=== PATIENT | female | born 1950 | race Caucasian/White ===

== ENCOUNTER 2019-09-04 13:34 | Observation (INO) | payer MEDICARE ==
[2019-09-04] MEDS ORDERED: Metoclopramide 10 MG/2 ML SDV IVPUSH ONE (14:08)
[2019-09-04] MEDS ORDERED: Sodium Chloride 0.9% 10 ML Syringe FLUSH PRN (14:08)
[2019-09-04] MEDS ORDERED: HYDROmorphone 1 MG/ML Syringe IVPUSH ONE ×2 (14:08→15:35)
--- NOTE | 2019-09-04 14:19 | EDM.PDOC ---
ED HPI GENERAL MEDICAL PROBLEM - General Chief Complaint: Lower Extremity Injury/Pain Stated Complaint: LARGE HEMATOMA ON LEG Time Seen by Provider: 09/04/19 14:08 Source of Information: Reports: Patient History Limitations: Reports: No Limitations - History of Present Illness INITIAL COMMENTS - FREE TEXT/NARRATIVE: 69-year-old female presents to the ED from local correction. She presents with a very large hematoma that has developed since about 10:00 this morning on her left lower extremity. She states her leg came in contact with the edge of a old left and started initial contusion. She then banged her right olvera on her care providers knee. Thus significant blunt trauma to the area occurred. Patient is on Eliquis 5mg daily due to atrial fibrillation. Patient started with a boost to the area which is gradually increased in size to the point that she can't stand the pain any longer. Large hematoma has developed on the anterior medial aspect of her right leg which is measures 16 cm in diameter and is exquisitely tender to palpation. Onset: Today Onset Date: 09/04/19 Onset Time: 10:00 Duration: Hour(s): Location: Reports: Lower Extremity, Right (TAHIR, gradually enlarging over the) Quality: Reports: Ache ( midportion and medial portion of her right lower leg.) , Throbbing Severity: Severe (10 out of 10) Improves with: Reports: None Worsens with: Reports: Other Context: Reports: Trauma (Blunt trauma to the right anterior medial leg this morning on any other persons knee.). Denies: Activity (Touch or movement of her leg), Exercise, Lifting, Sick Contact Associated Symptoms: Reports: No Other Symptoms Treatments RENAL DIALYSIS RN: Reports: Other (see below) (Nothing has helped the pain so far.) Right Lower Leg Pain Score (Numeric/FACES): 10 - Related Data Allergies Allergy/AdvReac Type Severity Reaction Status Date / Time benzoin Allergy Rash Verified 09/04/19 16:15 diclofenac [From [employer]] Allergy Pain Verified 09/04/19 16:15 fentanyl Allergy Confusion Verified 09/04/19 15:36 floxacillin Allergy Pain Verified 09/04/19 16:15 misoprostol [From [employer]] Allergy Pain Verified 09/04/19 16:15 morphine Allergy Respiratory Verified 09/04/19 15:36 Distress Home Meds: Home Meds Apixaban [Eliquis] 5 mg PO DAILY 09/04/19 [History] Calcium Acetate 667 mg PO TID 09/04/19 [History] Gabapentin [Neurontin] 100 mg PO TID 09/04/19 [History] Insulin Glarg,Human.Rec.Analog [Lantus] 15 units SQ BEDTIME 09/04/19 [History] Levothyroxine Sodium [Synthroid] 150 mcg PO DAILY 09/04/19 [History] Melatonin 10 mg PO BEDTIME 09/04/19 [History] Midodrine 10 mg PO TID 09/04/19 [History] Pantoprazole Sodium 40 mg PO BIDAC 09/04/19 [History] Sertraline [Zoloft] 100 mg PO BEDTIME 09/04/19 [History] Vitamin B Complex [B Complex] 1 tab PO DAILY 09/04/19 [History] traZODone HCl [Trazodone HCl] 150 mg PO BEDTIME 09/04/19 [History] Past Medical History Cardiovascular History: Reports: Afib, Heart Failure, High Cholesterol, Hypertension, Pacemaker, SOB on Exertion Respiratory History: Reports: COPD Genitourinary History: Reports: Urinary Incontinence, Other (See Below) (Stress and urge components. Urinary frequency) Musculoskeletal History: Reports: Osteoarthritis, Other (See Below) (No longer walks due to severe pain in both lower extremities. She uses a Sherita lift to get in and out of the bathtub and bed.) Psychiatric History: Reports: Depression, Other (See Below) (Chronic insomnia) Endocrine/Metabolic History: Reports: Diabetes, Type II (Using insulin for control of her diabetes.), Obesity/BMI 30+, Osteopenia, Osteoporosis, Vitamin D Deficiency Social & Family History - Living Situation & Occupation Living situation: Reports: Extended Care Facility Occupation: Retired Review of Systems - Review of Systems Review Of Systems: See Below Constitutional: Reports: Weakness Eyes: Reports: No Symptoms Ears: Reports: No Symptoms Nose: Reports: No Symptoms Mouth/Throat: Reports: No Symptoms Respiratory: Reports: Shortness of Breath. Denies: Wheezing, Pleuritic Chest Pain Cardiovascular: Reports: Edema, Irregular Heart Rate (Chronic atrial fibrillation), Other (Known heart failure) GI/Abdominal: Reports: No Symptoms Genitourinary: Reports: Incontinence (Urgent stress components.), Other Musculoskeletal: Reports: Joint Pain (Urinary frequency) Skin: Reports: Bruising ( knees hips low back neck and shoulders at times. is extremely easily lately and has skin tears to both upper extremities. ) Neurological: Reports: No Symptoms Psychiatric: Reports: No Symptoms ED EXAM, GENERAL - Physical Exam Exam: See Below Exam Limited By: No Limitations General Appearance: Alert, Moderate Distress (She is in a great deal of pain from the hematoma expanding on her right lower extremity) Eye Exam: Bilateral Eye: Normal Inspection, PERRL Throat/Mouth: Normal Inspection, Normal Lips, Normal Oropharynx Head: Atraumatic, Normocephalic Neck: Limited Range of Motion. No: Lymphadenopathy (L), Lymphadenopathy (R) Respiratory/Chest: Chest Non-Tender, Decreased Breath Sounds (Decreased air into the posterior 30% lung redd bilaterally.), Wheezing (Expiratory wheeze.) , Other (Placido make her left upper anterior chest.). No: Lungs Clear, Normal Breath Sounds Cardiovascular: No Gallop, No Murmur, No Rub, Irregularly Irregular ( Intermittent or paroxysmal atrial fibrillation.). No: Normal Peripheral Pulses , Regular Rate, Rhythm Peripheral Pulses: 1+: Posterior Tibial (L), Dorsalis Pedis (R) GI/Abdominal: Soft, Non-Tender, No Organomegaly, No Abnormal Bruit, No Mass, Pelvis Stable (Palpation), Other Back Exam: No: CVA Tenderness (L), CVA Tenderness (R) Extremities: Joint Swelling (Knees show evidence of osteophytic change.), Other (Patient has mild venous stasis dermatitis bilaterally both lower extremities. She has a developing large 16 cm hematoma over the right lower anterior medial leg. It is exquisitely tender to touch.). No: Normal Range of Motion Neurological: Alert, Oriented, CN II-XII Intact, Normal Cognition Psychiatric: Anxious Skin Exam: Warm, Ecchymosis (Enlarging hematoma right anterior medial leg now measuring 16 cm since blunt trauma 10:00 this morning. Patient is chronically anticoagulated with Eliquis I believe 5 mg twice a day.) Course - Vital Signs Last Recorded V/S: Last Vital Signs Temp 36.7 C 09/04/19 16:55 Pulse 82 09/04/19 19:31 Resp 16 09/04/19 16:55 BP 95/66 09/04/19 19:31 Pulse Ox 90 L 09/04/19 19:31 - Orders/Labs/Meds Orders: Active Orders 24 hr Category Date Time Status Admission Status [Patient Status] [ADT] Routine ADT 09/04/19 15:32 Active Peripheral IV Care [RC] . DIRECTED Care 09/04/19 14:08 Active Sodium Chloride 0.9% [Saline Flush] Med 09/04/19 14:08 Active 10 ml FLUSH ASDIRECTED PRN Peripheral IV Insertion Adult [OM.PC] Stat Oth 09/04/19 14:08 Ordered Schedule Procedure [COMM] Stat Oth 09/04/19 15:24 Ordered Schedule Procedure [COMM] Urgent Oth 09/04/19 15:18 Ordered Medication Orders Gabapentin (Neurontin) 100 mg PO TID LOAN Hydromorphone HCl (Dilaudid) 0.5 mg IVPUSH Q2HR PRN PRN Reason: Pain Sodium Chloride (Normal Saline) 1,000 mls @ 80 mls/hr IV ASDIRECTED LOAN Potassium Chloride/Sodium Chloride (Normal Saline With 20 Meq Kcl) 1,000 mls @ 75 mls/hr IV ASDIRECTED LOAN Insulin Glargine (Lantus) 15 unit SUBCUT BEDTIME LOAN Non-Formulary Medication (Calcium Acetate [Calcium Acetate]) 667 mg PO TID LOAN Non-Formulary Medication (Melatonin [Melatonin]) 10 mg PO BEDTIME LOAN Non-Formulary Medication (Sertraline) 100 mg PO BEDTIME LOAN Non-Formulary Medication (Trazodone Hcl [Trazodone Hcl]) 150 mg PO BEDTIME LOAN Non-Formulary Medication (Vitamin B Complex) 1 tab PO DAILY LOAN Nystatin (Nystop) 0 gm TOP BID LOAN Sodium Chloride (Saline Flush) 10 ml FLUSH ASDIRECTED PRN PRN Reason: Keep Vein Open Last Admin: 09/04/19 14:18 Dose: 10 ml Labs: Laboratory Tests 09/04/19 09/04/19 09/04/19 Range/Units 14:16 14:16 14:16 WBC 7.38 (3.98-10.04) K/mm3 RBC 2.87 L (3.98-5.22) M/mm3 Hgb 9.0 L (11.2-15.7) gm/dl Hct 30.5 L (34.1-44.9) % MCV 106.3 H (79.4-94.8) fl MCH 31.4 (25.6-32.2) pg MCHC 29.5 L (32.2-35.5) g/dl RDW Std Deviation 60.1 H (36.4-46.3) fL Plt Count 190 (182-369) K/mm3 MPV 10.9 (9.4-12.3) fl Neut % (Auto) 81.8 H (34.0-71.1) % Lymph % (Auto) 11.2 L (19.3-51.7) % Williams % (Auto) 5.1 (4.7-12.5) % Eos % (Auto) 1.5 (0.7-5.8) Baso % (Auto) 0.1 (0.1-1.2) % Neut # (Auto) 6.03 (1.56-6.13) K/mm3 Lymph # (Auto) 0.83 L (1.18-3.74) K/mm3 Williams # (Auto) 0.38 H (0.24-0.36) K/mm3 Eos # (Auto) 0.11 (0.04-0.36) K/mm3 Baso # (Auto) 0.01 (0.01-0.08) K/mm3 Manual Slide Review Abnormal smear PT 10.7 (9.7-12.0) SECONDS INR 0.98 APTT 30 (22-31) SECONDS Sodium 136 (136-145) mEq/L Potassium 3.5 (3.5-5.1) mEq/L Chloride 99 (98-107) mEq/L Carbon Dioxide 31 (21-32) mEq/L Anion Gap 9.5 (5-15) BUN 34 H (7-18) mg/dL Creatinine 4.4 H (0.55-1.02) mg/dL Est Cr Clr Drug Dosing 9.11 mL/min Estimated GFR (MDRD) 10 (>60) mL/min BUN/Creatinine Ratio 7.7 L (14-18) Glucose 317 H (80-115) mg/dL Calcium 8.1 L (8.5-10.1) mg/dL Magnesium 1.5 L (1.8-2.4) mg/dl Total Bilirubin 0.4 (0.2-1.0) mg/dL AST 15 (15-37) U/L ALT 21 (14-59) U/L Alkaline Phosphatase 127 H (46-116) U/L NT-Pro-B Natriuret Pep (0-125) pg/mL Total Protein 6.6 (6.4-8.2) g/dl Albumin 2.9 L (3.4-5.0) g/dl Globulin 3.7 gm/dL Albumin/Globulin Ratio 0.8 L (1-2) 09/04/19 Range/Units 14:16 WBC (3.98-10.04) K/mm3 RBC (3.98-5.22) M/mm3 Hgb (11.2-15.7) gm/dl Hct (34.1-44.9) % MCV (79.4-94.8) fl MCH (25.6-32.2) pg MCHC (32.2-35.5) g/dl RDW Std Deviation (36.4-46.3) fL Plt Count (182-369) K/mm3 MPV (9.4-12.3) fl Neut % (Auto) (34.0-71.1) % Lymph % (Auto) (19.3-51.7) % Williams % (Auto) (4.7-12.5) % Eos % (Auto) (0.7-5.8) Baso % (Auto) (0.1-1.2) % Neut # (Auto) (1.56-6.13) K/mm3 Lymph # (Auto) (1.18-3.74) K/mm3 Williams # (Auto) (0.24-0.36) K/mm3 Eos # (Auto) (0.04-0.36) K/mm3 Baso # (Auto) (0.01-0.08) K/mm3 Manual Slide Review PT (9.7-12.0) SECONDS INR APTT (22-31) SECONDS Sodium (136-145) mEq/L Potassium (3.5-5.1) mEq/L Chloride (98-107) mEq/L Carbon Dioxide (21-32) mEq/L Anion Gap (5-15) BUN (7-18) mg/dL Creatinine (0.55-1.02) mg/dL Est Cr Clr Drug Dosing mL/min Estimated GFR (MDRD) (>60) mL/min BUN/Creatinine Ratio (14-18) Glucose (80-115) mg/dL Calcium (8.5-10.1) mg/dL Magnesium (1.8-2.4) mg/dl Total Bilirubin (0.2-1.0) mg/dL AST (15-37) U/L ALT (14-59) U/L Alkaline Phosphatase (46-116) U/L NT-Pro-B Natriuret Pep > 26562 H (0-125) pg/mL Total Protein (6.4-8.2) g/dl Albumin (3.4-5.0) g/dl Globulin gm/dL Albumin/Globulin Ratio (1-2) Meds: Medications Generic Name Dose Route Start Last Admin Trade Name Freq PRN Reason Stop Dose Admin Gabapentin 100 mg 09/04/19 21:00 Neurontin PO TID LOAN Hydromorphone HCl 0.5 mg 09/04/19 19:05 Dilaudid IVPUSH Q2HR PRN Pain Sodium Chloride 1,000 mls @ 80 mls/hr 09/04/19 19:00 Normal Saline IV ASDIRECTED LOAN Potassium Chloride/Sodium Chloride 1,000 mls @ 75 mls/hr 09/04/19 20:03 Normal Saline With 20 Meq Kcl IV ASDIRECTED LOAN Insulin Glargine 15 unit 09/04/19 21:00 Lantus SUBCUT BEDTIME LOAN Non-Formulary Medication 667 mg 09/04/19 21:00 Calcium Acetate [Calcium Acetate] PO TID LOAN Non-Formulary Medication 10 mg 09/04/19 21:00 Melatonin [Melatonin] PO BEDTIME LOAN Non-Formulary Medication 100 mg 09/04/19 21:00 Sertraline PO BEDTIME LOAN Non-Formulary Medication 150 mg 09/04/19 21:00 Trazodone Hcl [Trazodone Hcl] PO BEDTIME LOAN Non-Formulary Medication 1 tab 09/05/19 09:00 Vitamin B Complex PO DAILY LOAN Nystatin 0 gm 09/04/19 21:00 Nystop TOP BID LOAN Sodium Chloride 10 ml 09/04/19 14:08 09/04/19 14:18 Saline Flush FLUSH 10 ml ASDIRECTED PRN Administration Keep Vein Open Discontinued Medications Generic Name Dose Route Start Last Admin Trade Name Freq PRN Reason Stop Dose Admin Hydromorphone HCl 1 mg 09/04/19 14:08 09/04/19 14:18 Dilaudid IVPUSH 09/04/19 14:09 1 mg ONETIME ONE Administration Hydromorphone HCl 1 mg 09/04/19 15:35 09/04/19 15:44 Dilaudid IVPUSH 09/04/19 15:36 1 mg ONETIME ONE Administration Hydromorphone HCl Confirm 09/04/19 15:54 Dilaudid Administered 09/04/19 15:55 Dose 0.5 mg .ROUTE .STK-MED ONE Lidocaine HCl Confirm 09/04/19 15:54 Xylocaine-Mpf 1% Administered 09/04/19 15:55 Dose 4 mls @ as directed .ROUTE .STK-MED ONE Ketamine HCl Confirm 09/04/19 15:55 Ketalar Administered 09/04/19 15:56 Dose 500 mg .ROUTE .STK-MED ONE Lidocaine HCl Confirm 09/04/19 15:42 Xylocaine-Mpf 1% Administered 09/04/19 15:43 Dose 30 ml .ROUTE .STK-MED ONE Metoclopramide HCl 7.5 mg 09/04/19 14:08 09/04/19 14:17 Reglan IVPUSH 09/04/19 14:09 7.5 mg ONETIME ONE Administration Propofol Confirm 09/04/19 15:54 Diprivan 20 Ml Administered 09/04/19 15:55 Dose 200 mg .ROUTE .STK-MED ONE Propofol Confirm 09/04/19 15:55 Diprivan 20 Ml Administered 09/04/19 15:56 Dose 200 mg .ROUTE .STK-MED ONE - Radiology Interpretation Free Text/Narrative:: 69-year-old female from local correction presents to the ED after blunt trauma to the right anterior medial right leg occurred at about 10:00 this morning. She has developed a expanding large hematoma over the right anterior medial leg measuring 16 cm at present. She is in severe exquisite pain from tissue expansion. This is going to need drainage and then aggressive compression to control the expanding hematoma. I will ask the surgeon to see her in consultation. In the meantime she will receive Dilaudid 1 mg IV with Reglan 7.5 mg IV for pain and nausea relief. Routine labs will be collected including coags. - Re-Assessments/Exams Free Text/Narrative Re-Assessment/Exam: 09/04/19 15:15 Labs reveal a normal white count at 7.38. The auto differential however shows 82% neutrophils. This micro-slide did not reveal any band cells. Abdomen is low at 9.0 with hematocrit of 30.5. MCV is elevated 106.3. Platelet count 190,000. PT is 10.7 with an INR of 0.98. PTT is 30. Sodium 136 with a potassium low-normal at 3.5. Chloride was 99 with a bicarbonate 31. Anion gap is 9.5. BUN is 34. Creatinine is elevated at 4.4. Therefore elevated MCV is secondary to renal insufficiency. Estimated GFR is 10 which is stage V chronic kidney disease. Glucose elevated at 317 and she is a type II diabetic and using insulin for control. Calcium was 8.1 magnesium is 1.5 low. Liver function is normal BNP is greater than 35,000. Total protein is 6.6 with an albumin fraction of 2.9. Globulin is 3.7. Dr. Cueva--surgeon front desk coordinator has seen the patient in consultation and is willing to take her to the OR to incise and drain the very large hematoma right anterior leg. It is quite obvious that this may continue to bleed and he may have to try and obtain vascular control by tying off the saphenous veins. Anesthesia has deferred the procedure so after 1800 hrs. to allow 6 hours of nothing by mouth before they willing to take her to the OR. 09/04/19 20:18 the labs above suggest that she is extremely high risk for anesthesia and does need adjustment of medications. Departure - Departure Time of Disposition: 16:35 Disposition: Admitted As Inpatient 67 Condition: Serious Clinical Impression: Chronic renal insufficiency, stage V Traumatic hematoma of right lower leg Qualifiers: Encounter type: initial encounter Qualified Code(s): S80.11XA - Contusion of right lower leg, initial encounter Congestive heart failure Qualifiers: Heart failure type: unspecified Heart failure chronicity: chronic Qualified Code(s): I50.9 - Heart failure, unspecified Anemia Qualifiers: Anemia type: due to chronic kidney disease Chronic kidney disease stage: stage 5, not on chronic dialysis Qualified Code(s): N18.5 - Chronic kidney disease, stage 5; D63.1 - Anemia in chronic kidney disease - Discharge Information *PRESCRIPTION DRUG MONITORING PROGRAM REVIEWED*: Not Applicable *COPY OF PRESCRIPTION DRUG MONITORING REPORT IN PATIENT [place]: Not Applicable - My Orders Last 24 Hours: My Active Orders 09/04/19 14:08 Peripheral IV Care [RC] . DIRECTED Sodium Chloride 0.9% [Saline Flush] 10 ml FLUSH ASDIRECTED PRN Peripheral IV Insertion Adult [OM.PC] Stat - Assessment/Plan Last 24 Hours: My Active Orders 09/04/19 14:08 Peripheral IV Care [RC] . DIRECTED Sodium Chloride 0.9% [Saline Flush] 10 ml FLUSH ASDIRECTED PRN Peripheral IV Insertion Adult [OM.PC] Stat
--- NOTE | 2019-09-04 15:36 | PCM.PREANE ---
Preanesthetic Assessment - Anesthesia/Transfusion/Family Hx Anesthesia History: Prior Anesthesia Without Reaction Type of Anesthesia Reaction: Allergy (morphine causes KEO, fentanyl "makes her crazy") Family History of Anesthesia Reaction: No Transfusion History: Prior Transfusion Without Reaction - Review of Systems Pulmonary: Shortness of Breath, Other ( COPD - uses 3L NCO2) Cardiovascular: Other (paced at 80 bpm since 2004 - ablated a number of times and has underlying SVT) - Physical Assessment NPO Status Date: 09/04/19 (1 sandwich, potato chips, Dr. Moss) NPO Status Time: 12:00 Vital Signs: Last Vital Signs Temp 36.5 C 09/04/19 13:46 Pulse Resp 18 09/04/19 13:46 BP Pulse Ox 96 09/04/19 13:46 Height: 5 ft 2 in Weight: 47.174 kg ASA Class: 4E Mental Status: Alert & Oriented x3 Airway Class: Mallampati = 2 Dentition: Reports: Dentures Thyro-Mental Finger Breadths: 3 Mouth Opening Finger Breadths: 3 ROM/Head Extension: Full Lungs: Clear to Auscultation, Normal Respiratory Effort Cardiovascular: Regular Rate (paced), Regular Rhythm - Lab Values: Laboratory Last Values WBC 7.38 K/mm3 (3.98-10.04) 09/04/19 14:16 RBC 2.87 M/mm3 (3.98-5.22) L 09/04/19 14:16 Hgb 9.0 gm/dl (11.2-15.7) L 09/04/19 14:16 Hct 30.5 % (34.1-44.9) L 09/04/19 14:16 MCV 106.3 fl (79.4-94.8) H 09/04/19 14:16 MCH 31.4 pg (25.6-32.2) 09/04/19 14:16 MCHC 29.5 g/dl (32.2-35.5) L 09/04/19 14:16 RDW Std Deviation 60.1 fL (36.4-46.3) H 09/04/19 14:16 Plt Count 190 K/mm3 (182-369) 09/04/19 14:16 MPV 10.9 fl (9.4-12.3) 09/04/19 14:16 Neut % (Auto) 81.8 % (34.0-71.1) H 09/04/19 14:16 Lymph % (Auto) 11.2 % (19.3-51.7) L 09/04/19 14:16 Sullivan % (Auto) 5.1 % (4.7-12.5) 09/04/19 14:16 Eos % (Auto) 1.5 (0.7-5.8) 09/04/19 14:16 Baso % (Auto) 0.1 % (0.1-1.2) 09/04/19 14:16 Neut # (Auto) 6.03 K/mm3 (1.56-6.13) 09/04/19 14:16 Lymph # (Auto) 0.83 K/mm3 (1.18-3.74) L 09/04/19 14:16 Sullivan # (Auto) 0.38 K/mm3 (0.24-0.36) H 09/04/19 14:16 Eos # (Auto) 0.11 K/mm3 (0.04-0.36) 09/04/19 14:16 Baso # (Auto) 0.01 K/mm3 (0.01-0.08) 09/04/19 14:16 PT 10.7 SECONDS (9.7-12.0) 09/04/19 14:16 INR 0.98 09/04/19 14:16 APTT 30 SECONDS (22-31) 09/04/19 14:16 Sodium 136 mEq/L (136-145) 09/04/19 14:16 Potassium 3.5 mEq/L (3.5-5.1) 09/04/19 14:16 Chloride 99 mEq/L (98-107) 09/04/19 14:16 Carbon Dioxide 31 mEq/L (21-32) 09/04/19 14:16 Anion Gap 9.5 (5-15) 09/04/19 14:16 BUN 34 mg/dL (7-18) H 09/04/19 14:16 Creatinine 4.4 mg/dL (0.55-1.02) H 09/04/19 14:16 Est Cr Clr Drug Dosing 9.11 mL/min 09/04/19 14:16 Estimated GFR (MDRD) 10 mL/min (>60) 09/04/19 14:16 BUN/Creatinine Ratio 7.7 (14-18) L 09/04/19 14:16 Glucose 317 mg/dL (80-115) H 09/04/19 14:16 Calcium 8.1 mg/dL (8.5-10.1) L 09/04/19 14:16 Magnesium 1.5 mg/dl (1.8-2.4) L 09/04/19 14:16 Total Bilirubin 0.4 mg/dL (0.2-1.0) 09/04/19 14:16 AST 15 U/L (15-37) 09/04/19 14:16 ALT 21 U/L (14-59) 09/04/19 14:16 Alkaline Phosphatase 127 U/L (46-116) H 09/04/19 14:16 NT-Pro-B Natriuret Pep > 10587 pg/mL (0-125) H 09/04/19 14:16 Total Protein 6.6 g/dl (6.4-8.2) 09/04/19 14:16 Albumin 2.9 g/dl (3.4-5.0) L 09/04/19 14:16 Globulin 3.7 gm/dL 09/04/19 14:16 Albumin/Globulin Ratio 0.8 (1-2) L 09/04/19 14:16 - Allergies Allergies/Adverse Reactions: Allergies Allergy/AdvReac Type Severity Reaction Status Date / Time benzoin Allergy Cannot Verified 09/04/19 15:36 Remember fentanyl Allergy Confusion Verified 09/04/19 15:36 morphine Allergy Respiratory Verified 09/04/19 15:36 Distress - Anesthesia Plan Pre-Op Medication Ordered: None - Acknowledgements Anesthesia Type Planned: MAC Pt an Appropriate Candidate for the Planned Anesthesia: Yes Alternatives and Risks of Anesthesia Discussed w Pt/Guardian: Yes Pt/Guardian Understands and Agrees with Anesthesia Plan: Yes Additional Comments: Need to wait until NPO status is achieved PreAnesthesia Questionnaire HEENT History: Reports: Impaired Vision Cardiovascular History: Reports: Afib, Heart Failure, High Cholesterol, Hypertension, Pacemaker, SOB on Exertion Other Cardiovascular History: Previous albasions done Respiratory History: Reports: COPD Genitourinary History: Reports: Dialysis Musculoskeletal History: Reports: Osteoarthritis, Other (See Below) (No longer walks due to severe pain in both lower extremities. She uses a Sherita lift to get in and out of the bathtub and bed.) Other Musculoskeletal History: past greenstick break to femur, fractured R arm, tib fib fracture, Psychiatric History: Reports: Anxiety, Depression Endocrine/Metabolic History: Reports: Diabetes, Type I, Diabetes, Type II - Past Surgical History HEENT Surgical History: Reports: Cataract Surgery, Tonsillectomy Other HEENT Surgeries/Procedures: dentures full top & bottom GI Surgical History: Reports: Colostomy - SUBSTANCE USE Smoking Status *Q: Former Smoker - CURRENT (IN HOUSE) MEDS Current Meds: Current Medications Sodium Chloride (Saline Flush) 10 ml FLUSH ASDIRECTED PRN PRN Reason: Keep Vein Open Last Admin: 09/04/19 14:18 Dose: 10 ml Discontinued Medications Hydromorphone HCl (Dilaudid) 1 mg IVPUSH ONETIME ONE Stop: 09/04/19 14:09 Last Admin: 09/04/19 14:18 Dose: 1 mg Metoclopramide HCl (Reglan) 7.5 mg IVPUSH ONETIME ONE Stop: 09/04/19 14:09 Last Admin: 09/04/19 14:17 Dose: 7.5 mg
[2019-09-04] MEDS ORDERED: Lidocaine 1% 30 ML SDV ONE (15:42)
[2019-09-04] MEDS ORDERED: Propofol 200 MG/20 ML SDV ONE ×2 (15:54→15:55)
[2019-09-04] MEDS ORDERED: HYDROmorphone 0.5 MG/0.5 ML Syringe ONE (15:54)
[2019-09-04] MEDS ORDERED: Lidocaine 1% 4 ML ONE (15:54)
[2019-09-04] MEDS ORDERED: Ketamine 500 mg/10 ML MDV ONE (15:55)
--- NOTE | 2019-09-04 18:31 | PCM.OPNOTE ---
- General Post-Op/Procedure Note Date of Surgery/Procedure: 09/04/19 Operative Procedure(s): drainage of hematoma acute expanding rt calf Pre Op Diagnosis: acute hematoma rt calf Post-Op Diagnosis: Same Anesthesia Technique: MAC Primary Surgeon: Ronnie Cueva EBL in mLs: 260 Complications: None Condition: Good
--- NOTE | 2019-09-04 18:52 | PCM.POSTAN ---
POST ANESTHESIA ASSESSMENT - MENTAL STATUS Mental Status: Alert, Oriented - VITAL SIGNS Vital Signs: Last Vital Signs Temp 36.5 C 09/04/19 13:46 Pulse Resp 18 09/04/19 13:46 BP Pulse Ox 96 09/04/19 13:46 - RESPIRATORY Respiratory Status: Respiratory Rate WNL, Airway Patent, O2 Saturation Stable, Supplemental Oxygen (NC O2 baseline use 24/7) - CARDIOVASCULAR CV Status: Pulse Rate WNL, Blood Pressure Stable - GASTROINTESTINAL GI Status: No Symptoms - PAIN Pain Score: 0 - POST OP HYDRATION Hydration Status: Adequate & Stable - OBSERVATIONS Free Text/Narrative:: Routine MAC sedation case. No complications. See anesthesia record for recovery vital signs.
[2019-09-04] MEDS ORDERED: Sodium Chloride 0.9% 1,000 ML IV SCH (19:00)
[2019-09-04] MEDS ORDERED: NS + KCl 20mEq/L 1,000 ML IV SCH (20:03)
[2019-09-04] MEDS ORDERED: Non-Formulary Medication 1 Each (Melatonin [Melatonin] 10 MG) PO SCH (21:00)
[2019-09-04] MEDS ORDERED: Insulin Glarg,Human.Rec.Analog 100 UNIT/ML ML SUBCUT SCH (21:00)
[2019-09-04] MEDS: Sertraline 50 MG Tab PO SCH (21:54)
[2019-09-04] MEDS: Gabapentin 100 MG Cap PO SCH (21:54)
[2019-09-04] MEDS: Calcium Acetate 667 MG Cap PO SCH (21:54)
[2019-09-04] MEDS: traZODone 50 MG Tab PO SCH (21:54)
[2019-09-04] MEDS: Nystatin Topical Powder 15 GM Bottle TOP SCH (21:54)
[2019-09-04] MEDS: HYDROmorphone 0.5 MG/0.5 ML Syringe IVPUSH PRN (21:55)
[2019-09-04] MEDS: Melatonin 3 MG Tab PO SCH (23:01)
[2019-09-05] MEDS: HYDROmorphone 0.5 MG/0.5 ML Syringe IVPUSH PRN ×4 (04:02→13:43)
[2019-09-05] MEDS: Calcium Acetate 667 MG Cap PO SCH ×3 (06:30→17:24)
[2019-09-05] MEDS: Vitamin B Complex With Vitamin C Cap PO SCH (08:55)
[2019-09-05] MEDS: Gabapentin 100 MG Cap PO SCH ×3 (08:55→20:36)
[2019-09-05] MEDS: Nystatin Topical Powder 15 GM Bottle TOP SCH ×2 (10:06→20:37)
[2019-09-05] MEDS ORDERED: Acetaminophen/HYDROcodone 325-5 MG Tab PO PRN ×2 (13:29→13:59)
[2019-09-05] MEDS ORDERED: Insulin Lispro 100 Units/ML 3 ML Vial SUBCUT SCH (17:00)
[2019-09-05] MEDS: Insulin Lispro 100 Units/ML 3 ML Vial SUBCUT SCH ×3 (17:48→21:13)
--- NOTE | 2019-09-05 20:11 | PCM48HPAN ---
Post Anesthesia Note - EVALUATION WITHIN 48HRS OF ANESTHETIC Vital Signs in Normal Range: Yes Patient Participated in Evaluation: No (patient sleeping) Respiratory Function Stable: Yes (patient at baseline FiO2 requirements) Airway Patent: Yes Cardiovascular Function Stable: Yes Hydration Status Stable: Yes Pain Control Satisfactory: Yes Nausea and Vomiting Control Satisfactory: Yes Mental Status Recovered: Yes Vital Signs: Last Vital Signs Temp 36.5 C 09/05/19 16:10 Pulse 83 09/05/19 16:10 Resp 16 09/05/19 16:10 BP 103/84 09/05/19 16:10 Pulse Ox 95 09/05/19 16:10 - COMMENTS/OBSERVATIONS Free Text/Narrative:: Patient will need to get back on her dialysis schedule and need aggressive wound therapy; otherwise, her anesthetic was uneventful and she is at her baseline
[2019-09-05] MEDS: Melatonin 3 MG Tab PO SCH (20:36)
[2019-09-05] MEDS: traZODone 50 MG Tab PO SCH (20:37)
[2019-09-05] MEDS: Sertraline 50 MG Tab PO SCH (20:38)
[2019-09-05] MEDS ORDERED: Insulin Glarg,Human.Rec.Analog 100 UNIT/ML ML SUBCUT SCH (21:00)
[2019-09-06] MEDS: Insulin Lispro 100 Units/ML 3 ML Vial SUBCUT SCH ×2 (07:33→11:34)
[2019-09-06] MEDS: Gabapentin 100 MG Cap PO SCH (08:19)
[2019-09-06] MEDS: Calcium Acetate 667 MG Cap PO SCH ×2 (08:19→11:33)
[2019-09-06] MEDS: Vitamin B Complex With Vitamin C Cap PO SCH (08:19)
[2019-09-06] MEDS: Nystatin Topical Powder 15 GM Bottle TOP SCH (08:23)
--- NOTE | 2019-09-06 09:18 | PCM.CONS ---
H&P History of Present Illness - General Date of Service: 09/06/19 Admit Problem/Dx: Admission Diagnosis/Problem Admission Diagnosis/Problem Hematoma - History of Present Illness Initial Comments - Free Text/Narative: 69-year-old female with extensive past medical history who presents to the ED from local [facility] care facility for severe right leg pain. She presents with a very large hematoma that has developed since about 10:00 this morning on her right lower extremity. As per patient she is bedbound and banged her leg accidentally on bed after which she started noticing worsening edema as well as pain. This continued to get worse for which she decided to come to the ED for further evaluation. Of note patient is on Eliquis for atrial fibrillation, last dose Friday. Right Lower Leg Pain Score (Numeric/FACES): 8 - Related Data Allergies/Adverse Reactions: Allergies Allergy/AdvReac Type Severity Reaction Status Date / Time benzoin Allergy Rash Verified 09/04/19 21:06 morphine Allergy Respiratory Verified 09/04/19 21:06 Distress diclofenac [From [employer]] AdvReac Pain Verified 09/06/19 10:52 fentanyl AdvReac Confusion Verified 09/06/19 10:52 floxacillin AdvReac Pain Verified 09/06/19 10:52 misoprostol [From [employer]] AdvReac Pain Verified 09/06/19 10:52 Home Medications: Home Meds Apixaban [Eliquis] 5 mg PO DAILY 09/04/19 [History] Calcium Acetate 667 mg PO TID 09/04/19 [History] Gabapentin [Neurontin] 100 mg PO TID 09/04/19 [History] Insulin Glarg,Human.Rec.Analog [Lantus] 15 units SQ BEDTIME 09/04/19 [History] Levothyroxine Sodium [Synthroid] 150 mcg PO DAILY 09/04/19 [History] Melatonin 10 mg PO BEDTIME 09/04/19 [History] Midodrine 10 mg PO TID 09/04/19 [History] Pantoprazole Sodium 40 mg PO BIDAC 09/04/19 [History] Sertraline [Zoloft] 100 mg PO BEDTIME 09/04/19 [History] Vitamin B Complex [B Complex] 1 tab PO DAILY 09/04/19 [History] traZODone HCl [Trazodone HCl] 150 mg PO BEDTIME 09/04/19 [History] Past Medical History HEENT History: Reports: Impaired Vision Cardiovascular History: Reports: Afib, Heart Failure, High Cholesterol, Hypertension, Pacemaker, SOB on Exertion Other Cardiovascular History: Previous albasions done Respiratory History: Reports: COPD Genitourinary History: Reports: Urinary Incontinence, Other (See Below) (Stress and urge components. Urinary frequency) Musculoskeletal History: Reports: Osteoarthritis, Other (See Below) (No longer walks due to severe pain in both lower extremities. She uses a Sherita lift to get in and out of the bathtub and bed.) Other Musculoskeletal History: past greenstick break to femur, fractured R arm, tib fib fracture, Psychiatric History: Reports: Depression, Other (See Below) (Chronic insomnia) Endocrine/Metabolic History: Reports: Diabetes, Type II (Using insulin for control of her diabetes.), Obesity/BMI 30+, Osteopenia, Osteoporosis, Vitamin D Deficiency - Past Surgical History HEENT Surgical History: Reports: Cataract Surgery, Tonsillectomy Other HEENT Surgeries/Procedures: dentures full top & bottom GI Surgical History: Reports: Colostomy Social & Family History - Tobacco Use Smoking Status *Q: Former Smoker Used Tobacco, but Quit: Yes Month/Year Tobacco Last Used: 2011 - Caffeine Use Caffeine Use: Reports: Coffee, Soda - Recreational Drug Use Recreational Drug Use: No - Living Situation & Occupation Living situation: Reports: Extended Care Facility Occupation: Retired H&P Review of Systems - Review of Systems: Review Of Systems: See Below Free Text/Narrative: Constitutional: Reports: Weakness Eyes: Reports: No Symptoms Ears: Reports: No Symptoms Nose: Reports: No Symptoms Mouth/Throat: Reports: No Symptoms Respiratory: Reports: Shortness of Breath. Denies: Wheezing, Pleuritic Chest Pain Cardiovascular: Reports: Edema, Irregular Heart Rate (Chronic atrial fibrillation), Other (Known heart failure) GI/Abdominal: Reports: No Symptoms Genitourinary: Reports: Incontinence (Urgent stress components.), Other Musculoskeletal: Reports: Joint Pain (Urinary frequency) Skin: Reports: Bruising ( knees hips low back neck and shoulders at times. is extremely easily lately and has skin tears to both upper extremities. ) Neurological: Reports: No Symptoms Psychiatric: Reports: No Symptoms Exam - Exam Exam: See Below - Vital Signs Vital Signs: Last Vital Signs Temp 97.5 F 09/06/19 08:18 Pulse 61 09/06/19 08:18 Resp 16 09/06/19 08:18 BP 106/63 09/06/19 08:18 Pulse Ox 90 L 09/06/19 08:18 Weight: 107.093 kg - Exam Physical Exam Comments:: Exam Limited By: Body habitus General Appearance: Alert, Moderate Distress (She is in a great deal of pain from the hematoma expanding on her right lower extremity) Eye Exam: Bilateral Eye: Normal Inspection, PERRL Throat/Mouth: Normal Inspection, Normal Lips, Normal Oropharynx Head: Atraumatic, Normocephalic Neck: Limited Range of Motion. No: Lymphadenopathy (L), Lymphadenopathy (R) Respiratory/Chest: Chest Non-Tender, Decreased Breath Sounds (Decreased air into the posterior 30% lung redd bilaterally.), Wheezing (Expiratory wheeze.) , Other (Placido make her left upper anterior chest.). No: Lungs Clear, Normal Breath Sounds Cardiovascular: No Gallop, No Murmur, No Rub, Irregularly Irregular ( Intermittent or paroxysmal atrial fibrillation.). No: Normal Peripheral Pulses , Regular Rate, Rhythm Peripheral Pulses: 1+: Posterior Tibial (L), Dorsalis Pedis (R) GI/Abdominal: Soft, Non-Tender, No Organomegaly, No Abnormal Bruit, No Mass, Pelvis Stable (Palpation), Other Back Exam: No: CVA Tenderness (L), CVA Tenderness (R) Extremities: Joint Swelling (Knees show evidence of osteophytic change.), Other (Patient has mild venous stasis dermatitis bilaterally both lower extremities. Wrapped RLE, no soiling of dressing Neurological: Alert, Oriented, CN II-XII Intact, Normal Cognition Psychiatric: Anxious Skin Exam: Warm, Ecchymosis (Enlarging hematoma right anterior medial leg now measuring 16 cm since blunt trauma 10:00 this morning. Patient is chronically anticoagulated with Eliquis I believe 5 mg twice a day.) - Patient Data Result Diagrams: 09/06/19 05:21 09/06/19 05:21 Consult PN Assessment/Plan POD#: 2 Procedures: Procedures Right leg hematoma removal (1) Traumatic hematoma of right lower leg SNOMED Code(s): 520678300 Code(s): S80.11XA - CONTUSION OF RIGHT LOWER LEG, INITIAL ENCOUNTER Current Visit: Yes Qualifiers: Encounter type: initial encounter Qualified Code(s): S80.11XA - Contusion of right lower leg, initial encounter (2) Anemia, blood loss SNOMED Code(s): 840083566 Code(s): D50.0 - IRON DEFICIENCY ANEMIA SECONDARY TO BLOOD LOSS (CHRONIC) Current Visit: Yes (3) End stage kidney disease SNOMED Code(s): 87035099 Code(s): N18.6 - END STAGE RENAL DISEASE Current Visit: Yes (4) Dialysis patient SNOMED Code(s): 350179018 Code(s): Z99.2 - DEPENDENCE ON RENAL DIALYSIS Current Visit: Yes (5) Heart failure SNOMED Code(s): 14235484 Code(s): I50.9 - HEART FAILURE, UNSPECIFIED Current Visit: Yes (6) Atrial fibrillation SNOMED Code(s): 65433539 Code(s): I48.91 - UNSPECIFIED ATRIAL FIBRILLATION Current Visit: Yes (7) Chronic anticoagulation SNOMED Code(s): 320532147 Code(s): Z79.01 - ECONOMIC CONSULTANT (CURRENT) USE OF ANTICOAGULANTS Current Visit: Yes (8) Insulin dependent diabetes mellitus SNOMED Code(s): 94002278 Code(s): E11.9 - TYPE 2 DIABETES MELLITUS WITHOUT COMPLICATIONS; Z79.4 - ECONOMIC CONSULTANT (CURRENT) USE OF INSULIN Current Visit: Yes (9) COPD (chronic obstructive pulmonary disease) SNOMED Code(s): 60619416 Code(s): J44.9 - CHRONIC OBSTRUCTIVE PULMONARY DISEASE, UNSPECIFIED Current Visit: Yes (10) Pacemaker SNOMED Code(s): 935129880 Code(s): Z95.0 - PRESENCE OF CARDIAC PACEMAKER Current Visit: Yes (11) Dyslipidemia SNOMED Code(s): 028287460 Code(s): E78.5 - HYPERLIPIDEMIA, UNSPECIFIED Current Visit: Yes (12) Morbid obesity with BMI of 40.0-44.9, adult SNOMED Code(s): 100965247, 91041771221056 Code(s): E66.01 - MORBID (SEVERE) OBESITY DUE TO EXCESS CALORIES; Z68.41 - BODY MASS INDEX (BMI) 40.0-44.9, ADULT Current Visit: Yes (13) Bed confinement status SNOMED Code(s): 955502377, 735347962 Code(s): Z74.01 - BED CONFINEMENT STATUS Current Visit: Yes (14) Depression SNOMED Code(s): 25756428 Code(s): F32.9 - MAJOR DEPRESSIVE DISORDER, SINGLE EPISODE, UNSPECIFIED Current Visit: Yes (15) Urinary incontinence SNOMED Code(s): 246328568 Code(s): R32 - UNSPECIFIED URINARY INCONTINENCE Current Visit: Yes (16) Anemia SNOMED Code(s): 626746328 Code(s): D64.9 - ANEMIA, UNSPECIFIED Current Visit: Yes Qualifiers: Anemia type: due to chronic kidney disease Chronic kidney disease stage: stage 5, not on chronic dialysis Qualified Code(s): N18.5 - Chronic kidney disease, stage 5; D63.1 - Anemia in chronic kidney disease (17) Hypotension SNOMED Code(s): 25924134 Code(s): I95.9 - HYPOTENSION, UNSPECIFIED Current Visit: Yes Problem List Initiated/Reviewed/Updated: Yes My Orders Last 24 Hours: My Active Orders 09/05/19 14:11 PT Evaluation and Treatment [CONS] Routine 09/05/19 14:12 OT Evaluation and Treatment [CONS] Routine 09/05/19 14:13 Consult to Case Management/Residency Program Coordinator [CONS] Routine 09/05/19 21:00 Insulin Glarg,Human.Rec.Analog [LantUS] 10 unit SUBCUT BEDTIME Plan: Traumatic hematoma of right lower leg s/p drainage 09/[address] Anay Palafox on chronic anemia, blood loss Bumped leg in bed Hb trending down from 9 on admission to 7.1 today Wound without active bleeding PLAN - F/U surgery - Continue pressure dressing - Transfuse RBCs - No DVT prophylaxis End stage kidney disease on renal replacement therapy TTS Chronic anemia Last [employer] session on Friday that was not completed, did approximately 2hrs when she normally does 3.5 [employer] facility is in house PLAN - Continue calcium acetate - Refer to Eliseo BENAVIDESP Heart failure, unknown EF S/P pacemaker placement Unknown EF Likely combined diastolic and systolic PLAN - Request records - Interrogate pacemaker Atrial fibrillation, CHADs VASC- 5 Chronic anticoagulation with Eliquis HR on admission 79x' Last Eliquis dose Friday morning PLAN - Telemetry during admission - Hold Eliquis Hypotension BP on admission 112/65 while in pain Home management with Midodrine 10mg TID PLAN - Continue Midodrine - Monitor BP Insulin dependent diabetes mellitus, unknown HbA1c Home management with Glargine 15u HS Glucose on admission 317 PLAN - New HbA1c - Accu-checks TID AC and HS - Moderated sensitivity insulin sliding scale - Hypoglycemia protocol - Diabetic diet - primary special educator Bed confinement status Chronic deconditioning Hypoalbuminemia Morbid obesity with BMI of 40.0-44.9, adult No acute issues PLAN - PT/OT consult - Dietary consult - Diabetic and dialysis diet Dyslipidemia New lipid panel with total cholesterol 181, LDL 79, HDL 54, TG 211 No home medications PLAN - F/U with PCP Depression Chronic insomnia No current SI or HI No previous suicide attempts Home management with Melatonin, Sertraline and Trazodone PLAN - Continue home medications PROPHYLAXIS DVT- contraindicated, mechanical due to acute lesion on leg and pharmacologic due to active bleed GI- home pantoprazole CODE STATUS: FULL CODE DISPOSITION: Patient admitted on Friday for hematoma evacuation, admitted to this facility due to road conditions. Case presented to [facility] who accepted transfer. Requesting Provider: Dr. Cueva Date Consult Requested: 09/05/19 Reason for Consult: Meical management of co-morbidities Patient History Reviewed: Yes Admission H&P Reviewed: Yes Notified Requestor: Yes (Patient needs transfer to [place] for blood transfusion and dyalisis) Time Spent (in minutes): 180
[2019-09-06 10:51] LABS: HEMOGLOBIN A1C 5.5 % (4.50-6.20)
--- NOTE | 2019-09-06 11:55 | PCM.SURGPN ---
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 ) - Patient Data Vitals - Most Recent: Last Vital Signs Temp 97.5 F 09/06/19 08:18 Pulse 61 09/06/19 08:18 Resp 16 09/06/19 08:18 BP 106/63 09/06/19 08:18 Pulse Ox 90 L 09/06/19 08:18 Weight - Most Recent: 107.093 kg I&O - Last 24 Hours: Intake & Output 09/05/19 09/06/19 09/06/19 23:59 07:59 15:59 Intake Total 1205 150 180 Output Total 0 0 Balance 1205 150 180 Lab Results Last 24 Hrs: Laboratory Results - last 24 hr 09/05/19 09/05/19 09/05/19 Range/Units 12:15 13:36 13:36 WBC 11.82 H (3.98-10.04) K/mm3 RBC 2.50 L (3.98-5.22) M/mm3 Hgb 7.9 L (11.2-15.7) gm/dl Hct 27.1 L (34.1-44.9) % MCV 108.4 H (79.4-94.8) fl MCH 31.6 (25.6-32.2) pg MCHC 29.2 L (32.2-35.5) g/dl RDW Std Deviation 60.6 H (36.4-46.3) fL Plt Count 188 (182-369) K/mm3 MPV 10.6 (9.4-12.3) fl Neut % (Auto) 81.5 H (34.0-71.1) % Lymph % (Auto) 12.5 L (19.3-51.7) % [place] % (Auto) 5.0 (4.7-12.5) % Eos % (Auto) 0.6 L (0.7-5.8) Baso % (Auto) 0.2 (0.1-1.2) % Neut # (Auto) 9.64 H (1.56-6.13) K/mm3 Lymph # (Auto) 1.48 (1.18-3.74) K/mm3 [place] # (Auto) 0.59 H (0.24-0.36) K/mm3 Eos # (Auto) 0.07 (0.04-0.36) K/mm3 Baso # (Auto) 0.02 (0.01-0.08) K/mm3 Manual Slide Review Abnormal smear PT (9.7-12.0) SECONDS INR Sodium 134 L (136-145) mEq/L Potassium 4.3 (3.5-5.1) mEq/L Chloride 97 L (98-107) mEq/L Carbon Dioxide 29 (21-32) mEq/L Anion Gap 12.3 (5-15) BUN 43 H (7-18) mg/dL Creatinine 5.3 H (0.55-1.02) mg/dL Est Cr Clr Drug Dosing 8.22 mL/min Estimated GFR (MDRD) 8 (>60) mL/min BUN/Creatinine Ratio 8.1 L (14-18) Glucose 224 H (80-115) mg/dL POC Glucose 240 H (80-115) mg/dL Hemoglobin A1c (4.50-6.20) % Calcium 8.2 L (8.5-10.1) mg/dL Phosphorus (2.6-4.7) mg/dL Total Bilirubin 0.5 (0.2-1.0) mg/dL AST 16 (15-37) U/L ALT 21 (14-59) U/L Alkaline Phosphatase 128 H (46-116) U/L Total Protein 6.6 (6.4-8.2) g/dl Albumin 2.9 L (3.4-5.0) g/dl Globulin 3.7 gm/dL Albumin/Globulin Ratio 0.8 L (1-2) Triglycerides (<150) mg/dL Cholesterol (<200) mg/dL LDL Cholesterol Direct (<100) mg/dL HDL Cholesterol (40-59) mg/dL 09/05/19 09/05/19 09/05/19 Range/Units 13:36 17:23 20:34 WBC (3.98-10.04) K/mm3 RBC (3.98-5.22) M/mm3 Hgb (11.2-15.7) gm/dl Hct (34.1-44.9) % MCV (79.4-94.8) fl MCH (25.6-32.2) pg MCHC (32.2-35.5) g/dl RDW Std Deviation (36.4-46.3) fL Plt Count (182-369) K/mm3 MPV (9.4-12.3) fl Neut % (Auto) (34.0-71.1) % Lymph % (Auto) (19.3-51.7) % [place] % (Auto) (4.7-12.5) % Eos % (Auto) (0.7-5.8) Baso % (Auto) (0.1-1.2) % Neut # (Auto) (1.56-6.13) K/mm3 Lymph # (Auto) (1.18-3.74) K/mm3 [place] # (Auto) (0.24-0.36) K/mm3 Eos # (Auto) (0.04-0.36) K/mm3 Baso # (Auto) (0.01-0.08) K/mm3 Manual Slide Review PT (9.7-12.0) SECONDS INR Sodium (136-145) mEq/L Potassium (3.5-5.1) mEq/L Chloride (98-107) mEq/L Carbon Dioxide (21-32) mEq/L Anion Gap (5-15) BUN (7-18) mg/dL Creatinine (0.55-1.02) mg/dL Est Cr Clr Drug Dosing mL/min Estimated GFR (MDRD) (>60) mL/min BUN/Creatinine Ratio (14-18) Glucose (80-115) mg/dL POC Glucose 242 H 275 H (80-115) mg/dL Hemoglobin A1c (4.50-6.20) % Calcium (8.5-10.1) mg/dL Phosphorus (2.6-4.7) mg/dL Total Bilirubin (0.2-1.0) mg/dL AST (15-37) U/L ALT (14-59) U/L Alkaline Phosphatase (46-116) U/L Total Protein (6.4-8.2) g/dl Albumin (3.4-5.0) g/dl Globulin gm/dL Albumin/Globulin Ratio (1-2) Triglycerides 211 H (<150) mg/dL Cholesterol 181 (<200) mg/dL LDL Cholesterol Direct 79 (<100) mg/dL HDL Cholesterol 54.0 (40-59) mg/dL 09/06/19 09/06/19 09/06/19 Range/Units 05:00 05:21 05:21 WBC 9.70 (3.98-10.04) K/mm3 RBC 2.28 L (3.98-5.22) M/mm3 Hgb 7.1 L* (11.2-15.7) gm/dl Hct 24.6 L (34.1-44.9) % MCV 107.9 H (79.4-94.8) fl MCH 31.1 (25.6-32.2) pg MCHC 28.9 L (32.2-35.5) g/dl RDW Std Deviation 58.2 H (36.4-46.3) fL Plt Count 160 L (182-369) K/mm3 MPV 10.7 (9.4-12.3) fl Neut % (Auto) 74.7 H (34.0-71.1) % Lymph % (Auto) 17.1 L (19.3-51.7) % [place] % (Auto) 5.9 (4.7-12.5) % Eos % (Auto) 2.0 (0.7-5.8) Baso % (Auto) 0.1 (0.1-1.2) % Neut # (Auto) 7.25 H (1.56-6.13) K/mm3 Lymph # (Auto) 1.66 (1.18-3.74) K/mm3 [place] # (Auto) 0.57 H (0.24-0.36) K/mm3 Eos # (Auto) 0.19 (0.04-0.36) K/mm3 Baso # (Auto) 0.01 (0.01-0.08) K/mm3 Manual Slide Review Abnormal smear PT 10.4 (9.7-12.0) SECONDS INR 0.95 Sodium (136-145) mEq/L Potassium (3.5-5.1) mEq/L Chloride (98-107) mEq/L Carbon Dioxide (21-32) mEq/L Anion Gap (5-15) BUN (7-18) mg/dL Creatinine (0.55-1.02) mg/dL Est Cr Clr Drug Dosing mL/min Estimated GFR (MDRD) (>60) mL/min BUN/Creatinine Ratio (14-18) Glucose (80-115) mg/dL POC Glucose (80-115) mg/dL Hemoglobin A1c (4.50-6.20) % Calcium (8.5-10.1) mg/dL Phosphorus 5.7 H (2.6-4.7) mg/dL Total Bilirubin (0.2-1.0) mg/dL AST (15-37) U/L ALT (14-59) U/L Alkaline Phosphatase (46-116) U/L Total Protein (6.4-8.2) g/dl Albumin (3.4-5.0) g/dl Globulin gm/dL Albumin/Globulin Ratio (1-2) Triglycerides (<150) mg/dL Cholesterol (<200) mg/dL LDL Cholesterol Direct (<100) mg/dL HDL Cholesterol (40-59) mg/dL 09/06/19 09/06/19 09/06/19 Range/Units 05:21 06:52 10:34 WBC (3.98-10.04) K/mm3 RBC (3.98-5.22) M/mm3 Hgb (11.2-15.7) gm/dl Hct (34.1-44.9) % MCV (79.4-94.8) fl MCH (25.6-32.2) pg MCHC (32.2-35.5) g/dl RDW Std Deviation (36.4-46.3) fL Plt Count (182-369) K/mm3 MPV (9.4-12.3) fl Neut % (Auto) (34.0-71.1) % Lymph % (Auto) (19.3-51.7) % [place] % (Auto) (4.7-12.5) % Eos % (Auto) (0.7-5.8) Baso % (Auto) (0.1-1.2) % Neut # (Auto) (1.56-6.13) K/mm3 Lymph # (Auto) (1.18-3.74) K/mm3 [place] # (Auto) (0.24-0.36) K/mm3 Eos # (Auto) (0.04-0.36) K/mm3 Baso # (Auto) (0.01-0.08) K/mm3 Manual Slide Review PT (9.7-12.0) SECONDS INR Sodium 133 L (136-145) mEq/L Potassium 4.1 (3.5-5.1) mEq/L Chloride 97 L (98-107) mEq/L Carbon Dioxide 26 (21-32) mEq/L Anion Gap 14.1 (5-15) BUN 49 H (7-18) mg/dL Creatinine 6.0 H (0.55-1.02) mg/dL Est Cr Clr Drug Dosing 7.26 mL/min Estimated GFR (MDRD) 7 (>60) mL/min BUN/Creatinine Ratio 8.2 L (14-18) Glucose 127 H (80-115) mg/dL POC Glucose 141 H (80-115) mg/dL Hemoglobin A1c 5.50 (4.50-6.20) % Calcium 8.4 L (8.5-10.1) mg/dL Phosphorus (2.6-4.7) mg/dL Total Bilirubin 0.4 (0.2-1.0) mg/dL AST 18 (15-37) U/L ALT 15 (14-59) U/L Alkaline Phosphatase 125 H (46-116) U/L Total Protein 6.1 L (6.4-8.2) g/dl Albumin 2.7 L (3.4-5.0) g/dl Globulin 3.4 gm/dL Albumin/Globulin Ratio 0.8 L (1-2) Triglycerides (<150) mg/dL Cholesterol (<200) mg/dL LDL Cholesterol Direct (<100) mg/dL HDL Cholesterol (40-59) mg/dL 09/06/19 Range/Units 11:06 WBC (3.98-10.04) K/mm3 RBC (3.98-5.22) M/mm3 Hgb (11.2-15.7) gm/dl Hct (34.1-44.9) % MCV (79.4-94.8) fl MCH (25.6-32.2) pg MCHC (32.2-35.5) g/dl RDW Std Deviation (36.4-46.3) fL Plt Count (182-369) K/mm3 MPV (9.4-12.3) fl Neut % (Auto) (34.0-71.1) % Lymph % (Auto) (19.3-51.7) % [place] % (Auto) (4.7-12.5) % Eos % (Auto) (0.7-5.8) Baso % (Auto) (0.1-1.2) % Neut # (Auto) (1.56-6.13) K/mm3 Lymph # (Auto) (1.18-3.74) K/mm3 [place] # (Auto) (0.24-0.36) K/mm3 Eos # (Auto) (0.04-0.36) K/mm3 Baso # (Auto) (0.01-0.08) K/mm3 Manual Slide Review PT (9.7-12.0) SECONDS INR Sodium (136-145) mEq/L Potassium (3.5-5.1) mEq/L Chloride (98-107) mEq/L Carbon Dioxide (21-32) mEq/L Anion Gap (5-15) BUN (7-18) mg/dL Creatinine (0.55-1.02) mg/dL Est Cr Clr Drug Dosing mL/min Estimated GFR (MDRD) (>60) mL/min BUN/Creatinine Ratio (14-18) Glucose (80-115) mg/dL POC Glucose 271 H (80-115) mg/dL Hemoglobin A1c (4.50-6.20) % Calcium (8.5-10.1) mg/dL Phosphorus (2.6-4.7) mg/dL Total Bilirubin (0.2-1.0) mg/dL AST (15-37) U/L ALT (14-59) U/L Alkaline Phosphatase (46-116) U/L Total Protein (6.4-8.2) g/dl Albumin (3.4-5.0) g/dl Globulin gm/dL Albumin/Globulin Ratio (1-2) Triglycerides (<150) mg/dL Cholesterol (<200) mg/dL LDL Cholesterol Direct (<100) mg/dL HDL Cholesterol (40-59) mg/dL Med Orders - Current: Current Medications Hydrocodone Bitart/Acetaminophen ([place] 325-5 Mg) 1 tab PO Q4H PRN PRN Reason: Pain Last Admin: 09/05/19 20:38 Dose: 1 tab Calcium Acetate (Phoslo) 667 mg PO TIDMEALS [facility] Last Admin: 09/06/19 11:33 Dose: 667 mg Gabapentin (Neurontin) 100 mg PO TID [facility] Last Admin: 09/06/19 08:19 Dose: 100 mg Insulin Glargine (Lantus) 10 unit SUBCUT BEDTIME [facility] Last Admin: 09/05/19 20:35 Dose: 10 units Insulin Human Lispro (Humalog) 0 unit SUBCUT QIDACANDBED [facility]; Protocol Last Admin: 09/06/19 11:34 Dose: 6 units Melatonin (Melatonin) 9 mg PO BEDTIME [facility] Last Admin: 09/05/19 20:36 Dose: 9 mg Nystatin (Nystop) 0 gm TOP BID [facility] Last Admin: 09/06/19 08:23 Dose: 1 applic Sertraline HCl (Zoloft) 100 mg PO BEDTIME [facility] Last Admin: 09/05/19 20:38 Dose: 100 mg Sodium Chloride (Saline Flush) 10 ml FLUSH ASDIRECTED PRN PRN Reason: Keep Vein Open Last Admin: 09/04/19 14:18 Dose: 10 ml Trazodone HCl (Trazodone) 150 mg PO BEDTIME [facility] Last Admin: 09/05/19 20:37 Dose: 150 mg Vitamin B Complex/Vitamin C (Super B With Vitamin C) 1 cap PO DAILY [facility] Last Admin: 09/06/19 08:19 Dose: 1 cap Discontinued Medications Hydrocodone Bitart/Acetaminophen ([place] 325-5 Mg) 1 tab PO Q6H PRN PRN Reason: Pain Hydromorphone HCl (Dilaudid) 1 mg IVPUSH ONETIME ONE Stop: 09/04/19 14:09 Last Admin: 09/04/19 14:18 Dose: 1 mg Hydromorphone HCl (Dilaudid) 1 mg IVPUSH ONETIME ONE Stop: 09/04/19 15:36 Last Admin: 09/04/19 15:44 Dose: 1 mg Hydromorphone HCl (Dilaudid) Confirm Administered Dose 0.5 mg .ROUTE .STK-MED ONE Stop: 09/04/19 15:55 Hydromorphone HCl (Dilaudid) 0.5 mg IVPUSH Q2HR PRN PRN Reason: Pain Last Admin: 09/05/19 13:43 Dose: 0.5 mg Lidocaine HCl (Xylocaine-Mpf 1%) Confirm Administered Dose 4 mls @ as directed .ROUTE .STK-MED ONE Stop: 09/04/19 15:55 Sodium Chloride (Normal Saline) 1,000 mls @ 80 mls/hr IV ASDIRECTED LOAN Potassium Chloride/Sodium Chloride (Normal Saline With 20 Meq Kcl) 1,000 mls @ 75 mls/hr IV ASDIRECTED [facility] Last Admin: 09/04/19 21:35 Dose: 75 mls/hr Insulin Glargine (Lantus) 15 unit SUBCUT BEDTIME [facility] Last Admin: 09/04/19 22:59 Dose: 15 units Ketamine HCl (Ketalar) Confirm Administered Dose 500 mg .ROUTE .STK-MED ONE Stop: 09/04/19 15:56 Lidocaine HCl (Xylocaine-Mpf 1%) Confirm Administered Dose 30 ml .ROUTE .STK- MED ONE Stop: 09/04/19 15:43 Metoclopramide HCl (Reglan) 7.5 mg IVPUSH ONETIME ONE Stop: 09/04/19 14:09 Last Admin: 09/04/19 14:17 Dose: 7.5 mg Non-Formulary Medication (Melatonin [Melatonin]) 10 mg PO BEDTIME [facility] Last Admin: 09/05/19 02:05 Dose: Not Given Propofol (Diprivan 20 Ml) Confirm Administered Dose 200 mg .ROUTE .STK-MED ONE Stop: 09/04/19 15:55 Propofol (Diprivan 20 Ml) Confirm Administered Dose 200 mg .ROUTE .STK-MED ONE Stop: 09/04/19 15:56 - Exam Wound/Incisions: Dressing Dry and Intact General: Alert, Oriented Lungs: Clear to Auscultation, Normal Respiratory Effort Cardiovascular: Regular Rate, Regular Rhythm Extremities: Other (open wound noted which is clean and no bleeding the dressing was removed and packing removed and redressed dressing orders given ) - Problem List Review Problem List Initiated/Reviewed/Updated: Yes - My Orders Last 24 Hours: Active Orders 24 hr Category Date Time Status Notify Provider Consults [RC] ASDIRECTED Care 09/05/19 13:31 Active Wound Care [RC] DAILY Care 09/05/19 13:28 Active Consult to Case Management/End Worker [CONS] Cons 09/05/19 14:13 Active Routine Consult to Physician [CONS] Routine Cons 09/05/19 13:30 Active OT Evaluation and Treatment [CONS] Routine Cons 09/05/19 14:12 Active PT Evaluation and Treatment [CONS] Routine Cons 09/05/19 14:11 Active Fluid Restriction [DIET] Diet 09/05/19 Dinner Active Acetaminophen/HYDROcodone [[place] 325-5 MG] Med 09/05/19 13:59 Active 1 tab PO Q4H PRN Insulin Glarg,Human.Rec.Analog [LantUS] Med 09/05/19 21:00 Active 10 unit SUBCUT BEDTIME Insulin Lispro [HumaLOG] Med 09/05/19 17:00 Active See Protocol SUBCUT QIDACANDBED Medication Orders Hydrocodone Bitart/Acetaminophen ([place] 325-5 Mg) 1 tab PO Q4H PRN PRN Reason: Pain Last Admin: 09/05/19 20:38 Dose: 1 tab Calcium Acetate (Phoslo) 667 mg PO TIDMEALS [facility] Last Admin: 09/06/19 11:33 Dose: 667 mg Admin: 09/06/19 08:19 Dose: 667 mg Admin: 09/05/19 17:24 Dose: 667 mg Admin: 09/05/19 12:09 Dose: 667 mg Admin: 09/05/19 06:30 Dose: 667 mg Admin: 09/04/19 21:54 Dose: 667 mg Gabapentin (Neurontin) 100 mg PO TID [facility] Last Admin: 09/06/19 08:19 Dose: 100 mg Admin: 09/05/19 20:36 Dose: 100 mg Admin: 09/05/19 14:53 Dose: 100 mg Admin: 09/05/19 08:55 Dose: 100 mg Admin: 09/04/19 21:54 Dose: 100 mg Insulin Glargine (Lantus) 10 unit SUBCUT BEDTIME [facility] Last Admin: 09/05/19 20:35 Dose: 10 units Insulin Human Lispro (Humalog) 0 unit SUBCUT QIDACANDBED [facility]; Protocol Last Admin: 09/06/19 11:34 Dose: 6 units Admin: 09/06/19 07:33 Dose: Not Given Admin: 09/05/19 21:13 Dose: Admin: 12/01/19 20:39 Dose: 6 units Admin: 09/05/19 17:48 Dose: 4 units Melatonin (Melatonin) 9 mg PO BEDTIME [facility] Last Admin: 09/05/19 20:36 Dose: 9 mg Admin: 09/04/19 23:01 Dose: 9 mg Nystatin (Nystop) 0 gm TOP BID [facility] Last Admin: 09/06/19 08:23 Dose: 1 applic Admin: 09/05/19 20:37 Dose: 1 applic Admin: 09/05/19 10:06 Dose: 1 applic Admin: 09/04/19 21:54 Dose: 1 applic Sertraline HCl (Zoloft) 100 mg PO BEDTIME [facility] Last Admin: 09/05/19 20:38 Dose: 100 mg Admin: 09/04/19 21:54 Dose: 100 mg Sodium Chloride (Saline Flush) 10 ml FLUSH ASDIRECTED PRN PRN Reason: Keep Vein Open Last Admin: 09/04/19 14:18 Dose: 10 ml Trazodone HCl (Trazodone) 150 mg PO BEDTIME [facility] Last Admin: 09/05/19 20:37 Dose: 150 mg Admin: 09/04/19 21:54 Dose: 150 mg Vitamin B Complex/Vitamin C (Super B With Vitamin C) 1 cap PO DAILY [facility] Last Admin: 09/06/19 08:19 Dose: 1 cap Admin: 09/05/19 08:55 Dose: 1 cap - Plan Plan (Free Text/Narrative):: pt has evidence of poor skin care at home and likly are risk of decubitus ulcer progressing since they developed at home her diabeteis is in need of better control with BS in 300 and 250 range she has anemia with Hb of 7.9 chronic renal failure ass stabel plan will have hospitalist see pt today and manage medical problems of diabetes and her chronic renal failure will follow the Hb and dress the wound and do skin care and frequent turns pt needs evaluation by social service cathleen continue to hold her Xeralto
--- NOTE | 2019-09-06 11:58 | PCM.SURGPN ---
- General Info Date of Service: 09/06/19 - Review of Systems General: Reports: No Symptoms Musculoskeletal: Reports: Foot Pain - Patient Data Vitals - Most Recent: Last Vital Signs Temp 97.5 F 09/06/19 08:18 Pulse 61 09/06/19 08:18 Resp 16 09/06/19 08:18 BP 106/63 09/06/19 08:18 Pulse Ox 90 L 09/06/19 08:18 Weight - Most Recent: 107.093 kg I&O - Last 24 Hours: Intake & Output 09/05/19 09/06/19 09/06/19 23:59 07:59 15:59 Intake Total 1205 150 180 Output Total 0 0 Balance 1205 150 180 Lab Results Last 24 Hrs: Laboratory Results - last 24 hr 09/05/19 09/05/19 09/05/19 Range/Units 12:15 13:36 13:36 WBC 11.82 H (3.98-10.04) K/mm3 RBC 2.50 L (3.98-5.22) M/mm3 Hgb 7.9 L (11.2-15.7) gm/dl Hct 27.1 L (34.1-44.9) % MCV 108.4 H (79.4-94.8) fl MCH 31.6 (25.6-32.2) pg MCHC 29.2 L (32.2-35.5) g/dl RDW Std Deviation 60.6 H (36.4-46.3) fL Plt Count 188 (182-369) K/mm3 MPV 10.6 (9.4-12.3) fl Neut % (Auto) 81.5 H (34.0-71.1) % Lymph % (Auto) 12.5 L (19.3-51.7) % [place] % (Auto) 5.0 (4.7-12.5) % Eos % (Auto) 0.6 L (0.7-5.8) Baso % (Auto) 0.2 (0.1-1.2) % Neut # (Auto) 9.64 H (1.56-6.13) K/mm3 Lymph # (Auto) 1.48 (1.18-3.74) K/mm3 [place] # (Auto) 0.59 H (0.24-0.36) K/mm3 Eos # (Auto) 0.07 (0.04-0.36) K/mm3 Baso # (Auto) 0.02 (0.01-0.08) K/mm3 Manual Slide Review Abnormal smear PT (9.7-12.0) SECONDS INR Sodium 134 L (136-145) mEq/L Potassium 4.3 (3.5-5.1) mEq/L Chloride 97 L (98-107) mEq/L Carbon Dioxide 29 (21-32) mEq/L Anion Gap 12.3 (5-15) BUN 43 H (7-18) mg/dL Creatinine 5.3 H (0.55-1.02) mg/dL Est Cr Clr Drug Dosing 8.22 mL/min Estimated GFR (MDRD) 8 (>60) mL/min BUN/Creatinine Ratio 8.1 L (14-18) Glucose 224 H (80-115) mg/dL POC Glucose 240 H (80-115) mg/dL Hemoglobin A1c (4.50-6.20) % Calcium 8.2 L (8.5-10.1) mg/dL Phosphorus (2.6-4.7) mg/dL Total Bilirubin 0.5 (0.2-1.0) mg/dL AST 16 (15-37) U/L ALT 21 (14-59) U/L Alkaline Phosphatase 128 H (46-116) U/L Total Protein 6.6 (6.4-8.2) g/dl Albumin 2.9 L (3.4-5.0) g/dl Globulin 3.7 gm/dL Albumin/Globulin Ratio 0.8 L (1-2) Triglycerides (<150) mg/dL Cholesterol (<200) mg/dL LDL Cholesterol Direct (<100) mg/dL HDL Cholesterol (40-59) mg/dL 09/05/19 09/05/19 09/05/19 Range/Units 13:36 17:23 20:34 WBC (3.98-10.04) K/mm3 RBC (3.98-5.22) M/mm3 Hgb (11.2-15.7) gm/dl Hct (34.1-44.9) % MCV (79.4-94.8) fl MCH (25.6-32.2) pg MCHC (32.2-35.5) g/dl RDW Std Deviation (36.4-46.3) fL Plt Count (182-369) K/mm3 MPV (9.4-12.3) fl Neut % (Auto) (34.0-71.1) % Lymph % (Auto) (19.3-51.7) % [place] % (Auto) (4.7-12.5) % Eos % (Auto) (0.7-5.8) Baso % (Auto) (0.1-1.2) % Neut # (Auto) (1.56-6.13) K/mm3 Lymph # (Auto) (1.18-3.74) K/mm3 [place] # (Auto) (0.24-0.36) K/mm3 Eos # (Auto) (0.04-0.36) K/mm3 Baso # (Auto) (0.01-0.08) K/mm3 Manual Slide Review PT (9.7-12.0) SECONDS INR Sodium (136-145) mEq/L Potassium (3.5-5.1) mEq/L Chloride (98-107) mEq/L Carbon Dioxide (21-32) mEq/L Anion Gap (5-15) BUN (7-18) mg/dL Creatinine (0.55-1.02) mg/dL Est Cr Clr Drug Dosing mL/min Estimated GFR (MDRD) (>60) mL/min BUN/Creatinine Ratio (14-18) Glucose (80-115) mg/dL POC Glucose 242 H 275 H (80-115) mg/dL Hemoglobin A1c (4.50-6.20) % Calcium (8.5-10.1) mg/dL Phosphorus (2.6-4.7) mg/dL Total Bilirubin (0.2-1.0) mg/dL AST (15-37) U/L ALT (14-59) U/L Alkaline Phosphatase (46-116) U/L Total Protein (6.4-8.2) g/dl Albumin (3.4-5.0) g/dl Globulin gm/dL Albumin/Globulin Ratio (1-2) Triglycerides 211 H (<150) mg/dL Cholesterol 181 (<200) mg/dL LDL Cholesterol Direct 79 (<100) mg/dL HDL Cholesterol 54.0 (40-59) mg/dL 12/02/19 12/02/19 12/02/19 Range/Units 05:00 05:21 05:21 WBC 9.70 (3.98-10.04) K/mm3 RBC 2.28 L (3.98-5.22) M/mm3 Hgb 7.1 L* (11.2-15.7) gm/dl Hct 24.6 L (34.1-44.9) % MCV 107.9 H (79.4-94.8) fl MCH 31.1 (25.6-32.2) pg MCHC 28.9 L (32.2-35.5) g/dl RDW Std Deviation 58.2 H (36.4-46.3) fL Plt Count 160 L (182-369) K/mm3 MPV 10.7 (9.4-12.3) fl Neut % (Auto) 74.7 H (34.0-71.1) % Lymph % (Auto) 17.1 L (19.3-51.7) % [place] % (Auto) 5.9 (4.7-12.5) % Eos % (Auto) 2.0 (0.7-5.8) Baso % (Auto) 0.1 (0.1-1.2) % Neut # (Auto) 7.25 H (1.56-6.13) K/mm3 Lymph # (Auto) 1.66 (1.18-3.74) K/mm3 [place] # (Auto) 0.57 H (0.24-0.36) K/mm3 Eos # (Auto) 0.19 (0.04-0.36) K/mm3 Baso # (Auto) 0.01 (0.01-0.08) K/mm3 Manual Slide Review Abnormal smear PT 10.4 (9.7-12.0) SECONDS INR 0.95 Sodium (136-145) mEq/L Potassium (3.5-5.1) mEq/L Chloride (98-107) mEq/L Carbon Dioxide (21-32) mEq/L Anion Gap (5-15) BUN (7-18) mg/dL Creatinine (0.55-1.02) mg/dL Est Cr Clr Drug Dosing mL/min Estimated GFR (MDRD) (>60) mL/min BUN/Creatinine Ratio (14-18) Glucose (80-115) mg/dL POC Glucose (80-115) mg/dL Hemoglobin A1c (4.50-6.20) % Calcium (8.5-10.1) mg/dL Phosphorus 5.7 H (2.6-4.7) mg/dL Total Bilirubin (0.2-1.0) mg/dL AST (15-37) U/L ALT (14-59) U/L Alkaline Phosphatase (46-116) U/L Total Protein (6.4-8.2) g/dl Albumin (3.4-5.0) g/dl Globulin gm/dL Albumin/Globulin Ratio (1-2) Triglycerides (<150) mg/dL Cholesterol (<200) mg/dL LDL Cholesterol Direct (<100) mg/dL HDL Cholesterol (40-59) mg/dL 09/06/19 09/06/19 09/06/19 Range/Units 05:21 06:52 10:34 WBC (3.98-10.04) K/mm3 RBC (3.98-5.22) M/mm3 Hgb (11.2-15.7) gm/dl Hct (34.1-44.9) % MCV (79.4-94.8) fl MCH (25.6-32.2) pg MCHC (32.2-35.5) g/dl RDW Std Deviation (36.4-46.3) fL Plt Count (182-369) K/mm3 MPV (9.4-12.3) fl Neut % (Auto) (34.0-71.1) % Lymph % (Auto) (19.3-51.7) % [place] % (Auto) (4.7-12.5) % Eos % (Auto) (0.7-5.8) Baso % (Auto) (0.1-1.2) % Neut # (Auto) (1.56-6.13) K/mm3 Lymph # (Auto) (1.18-3.74) K/mm3 [place] # (Auto) (0.24-0.36) K/mm3 Eos # (Auto) (0.04-0.36) K/mm3 Baso # (Auto) (0.01-0.08) K/mm3 Manual Slide Review PT (9.7-12.0) SECONDS INR Sodium 133 L (136-145) mEq/L Potassium 4.1 (3.5-5.1) mEq/L Chloride 97 L (98-107) mEq/L Carbon Dioxide 26 (21-32) mEq/L Anion Gap 14.1 (5-15) BUN 49 H (7-18) mg/dL Creatinine 6.0 H (0.55-1.02) mg/dL Est Cr Clr Drug Dosing 7.26 mL/min Estimated GFR (MDRD) 7 (>60) mL/min BUN/Creatinine Ratio 8.2 L (14-18) Glucose 127 H (80-115) mg/dL POC Glucose 141 H (80-115) mg/dL Hemoglobin A1c 5.50 (4.50-6.20) % Calcium 8.4 L (8.5-10.1) mg/dL Phosphorus (2.6-4.7) mg/dL Total Bilirubin 0.4 (0.2-1.0) mg/dL AST 18 (15-37) U/L ALT 15 (14-59) U/L Alkaline Phosphatase 125 H (46-116) U/L Total Protein 6.1 L (6.4-8.2) g/dl Albumin 2.7 L (3.4-5.0) g/dl Globulin 3.4 gm/dL Albumin/Globulin Ratio 0.8 L (1-2) Triglycerides (<150) mg/dL Cholesterol (<200) mg/dL LDL Cholesterol Direct (<100) mg/dL HDL Cholesterol (40-59) mg/dL 09/06/19 Range/Units 11:06 WBC (3.98-10.04) K/mm3 RBC (3.98-5.22) M/mm3 Hgb (11.2-15.7) gm/dl Hct (34.1-44.9) % MCV (79.4-94.8) fl MCH (25.6-32.2) pg MCHC (32.2-35.5) g/dl RDW Std Deviation (36.4-46.3) fL Plt Count (182-369) K/mm3 MPV (9.4-12.3) fl Neut % (Auto) (34.0-71.1) % Lymph % (Auto) (19.3-51.7) % [place] % (Auto) (4.7-12.5) % Eos % (Auto) (0.7-5.8) Baso % (Auto) (0.1-1.2) % Neut # (Auto) (1.56-6.13) K/mm3 Lymph # (Auto) (1.18-3.74) K/mm3 [place] # (Auto) (0.24-0.36) K/mm3 Eos # (Auto) (0.04-0.36) K/mm3 Baso # (Auto) (0.01-0.08) K/mm3 Manual Slide Review PT (9.7-12.0) SECONDS INR Sodium (136-145) mEq/L Potassium (3.5-5.1) mEq/L Chloride (98-107) mEq/L Carbon Dioxide (21-32) mEq/L Anion Gap (5-15) BUN (7-18) mg/dL Creatinine (0.55-1.02) mg/dL Est Cr Clr Drug Dosing mL/min Estimated GFR (MDRD) (>60) mL/min BUN/Creatinine Ratio (14-18) Glucose (80-115) mg/dL POC Glucose 271 H (80-115) mg/dL Hemoglobin A1c (4.50-6.20) % Calcium (8.5-10.1) mg/dL Phosphorus (2.6-4.7) mg/dL Total Bilirubin (0.2-1.0) mg/dL AST (15-37) U/L ALT (14-59) U/L Alkaline Phosphatase (46-116) U/L Total Protein (6.4-8.2) g/dl Albumin (3.4-5.0) g/dl Globulin gm/dL Albumin/Globulin Ratio (1-2) Triglycerides (<150) mg/dL Cholesterol (<200) mg/dL LDL Cholesterol Direct (<100) mg/dL HDL Cholesterol (40-59) mg/dL Med Orders - Current: Current Medications Hydrocodone Bitart/Acetaminophen ([place] 325-5 Mg) 1 tab PO Q4H PRN PRN Reason: Pain Last Admin: 09/05/19 20:38 Dose: 1 tab Calcium Acetate (Phoslo) 667 mg PO TIDMEALS LOAN Last Admin: 09/06/19 11:33 Dose: 667 mg Gabapentin (Neurontin) 100 mg PO TID [facility] Last Admin: 09/06/19 08:19 Dose: 100 mg Insulin Glargine (Lantus) 10 unit SUBCUT BEDTIME [facility] Last Admin: 09/05/19 20:35 Dose: 10 units Insulin Human Lispro (Humalog) 0 unit SUBCUT QIDACANDBED [facility]; Protocol Last Admin: 09/06/19 11:34 Dose: 6 units Melatonin (Melatonin) 9 mg PO BEDTIME [facility] Last Admin: 09/05/19 20:36 Dose: 9 mg Nystatin (Nystop) 0 gm TOP BID [facility] Last Admin: 09/06/19 08:23 Dose: 1 applic Sertraline HCl (Zoloft) 100 mg PO BEDTIME [facility] Last Admin: 09/05/19 20:38 Dose: 100 mg Sodium Chloride (Saline Flush) 10 ml FLUSH ASDIRECTED PRN PRN Reason: Keep Vein Open Last Admin: 09/04/19 14:18 Dose: 10 ml Trazodone HCl (Trazodone) 150 mg PO BEDTIME [facility] Last Admin: 09/05/19 20:37 Dose: 150 mg Vitamin B Complex/Vitamin C (Super B With Vitamin C) 1 cap PO DAILY [facility] Last Admin: 09/06/19 08:19 Dose: 1 cap Discontinued Medications Hydrocodone Bitart/Acetaminophen ([place] 325-5 Mg) 1 tab PO Q6H PRN PRN Reason: Pain Hydromorphone HCl (Dilaudid) 1 mg IVPUSH ONETIME ONE Stop: 09/04/19 14:09 Last Admin: 09/04/19 14:18 Dose: 1 mg Hydromorphone HCl (Dilaudid) 1 mg IVPUSH ONETIME ONE Stop: 09/04/19 15:36 Last Admin: 09/04/19 15:44 Dose: 1 mg Hydromorphone HCl (Dilaudid) Confirm Administered Dose 0.5 mg .ROUTE .STK-MED ONE Stop: 09/04/19 15:55 Hydromorphone HCl (Dilaudid) 0.5 mg IVPUSH Q2HR PRN PRN Reason: Pain Last Admin: 09/05/19 13:43 Dose: 0.5 mg Lidocaine HCl (Xylocaine-Mpf 1%) Confirm Administered Dose 4 mls @ as directed .ROUTE .STK-MED ONE Stop: 09/04/19 15:55 Sodium Chloride (Normal Saline) 1,000 mls @ 80 mls/hr IV ASDIRECTED LOAN Potassium Chloride/Sodium Chloride (Normal Saline With 20 Meq Kcl) 1,000 mls @ 75 mls/hr IV ASDIRECTED LOAN Last Admin: 09/04/19 21:35 Dose: 75 mls/hr Insulin Glargine (Lantus) 15 unit SUBCUT BEDTIME LOAN Last Admin: 09/04/19 22:59 Dose: 15 units Ketamine HCl (Ketalar) Confirm Administered Dose 500 mg .ROUTE .STK-MED ONE Stop: 09/04/19 15:56 Lidocaine HCl (Xylocaine-Mpf 1%) Confirm Administered Dose 30 ml .ROUTE .STK- MED ONE Stop: 09/04/19 15:43 Metoclopramide HCl (Reglan) 7.5 mg IVPUSH ONETIME ONE Stop: 09/04/19 14:09 Last Admin: 09/04/19 14:17 Dose: 7.5 mg Non-Formulary Medication (Melatonin [Melatonin]) 10 mg PO BEDTIME LOAN Last Admin: 09/05/19 02:05 Dose: Not Given Propofol (Diprivan 20 Ml) Confirm Administered Dose 200 mg .ROUTE .STK-MED ONE Stop: 09/04/19 15:55 Propofol (Diprivan 20 Ml) Confirm Administered Dose 200 mg .ROUTE .STK-MED ONE Stop: 09/04/19 15:56 - Exam Extremities: Other (dressing dry ) - Problem List Review Problem List Initiated/Reviewed/Updated: Yes - My Orders Last 24 Hours: Active Orders 24 hr Category Date Time Status Notify Provider Consults [RC] ASDIRECTED Care 09/05/19 13:31 Active Wound Care [RC] DAILY Care 09/05/19 13:28 Active Consult to Case Management/Coach Builder [CONS] Cons 09/05/19 14:13 Active Routine Consult to Physician [CONS] Routine Cons 09/05/19 13:30 Active OT Evaluation and Treatment [CONS] Routine Cons 09/05/19 14:12 Active PT Evaluation and Treatment [CONS] Routine Cons 09/05/19 14:11 Active Fluid Restriction [DIET] Diet 09/05/19 Dinner Active Acetaminophen/HYDROcodone [[place] 325-5 MG] Med 09/05/19 13:59 Active 1 tab PO Q4H PRN Insulin Glarg,Human.Rec.Analog [LantUS] Med 09/05/19 21:00 Active 10 unit SUBCUT BEDTIME Insulin Lispro [HumaLOG] Med 09/05/19 17:00 Active See Protocol SUBCUT QIDACANDBED Medication Orders Hydrocodone Bitart/Acetaminophen ([place] 325-5 Mg) 1 tab PO Q4H PRN PRN Reason: Pain Last Admin: 09/05/19 20:38 Dose: 1 tab Calcium Acetate (Phoslo) 667 mg PO TIDMEALS [facility] Last Admin: 09/06/19 11:33 Dose: 667 mg Admin: 09/06/19 08:19 Dose: 667 mg Admin: 09/05/19 17:24 Dose: 667 mg Admin: 09/05/19 12:09 Dose: 667 mg Admin: 09/05/19 06:30 Dose: 667 mg Admin: 09/04/19 21:54 Dose: 667 mg Gabapentin (Neurontin) 100 mg PO TID [facility] Last Admin: 09/06/19 08:19 Dose: 100 mg Admin: 09/05/19 20:36 Dose: 100 mg Admin: 09/05/19 14:53 Dose: 100 mg Admin: 09/05/19 08:55 Dose: 100 mg Admin: 09/04/19 21:54 Dose: 100 mg Insulin Glargine (Lantus) 10 unit SUBCUT BEDTIME [facility] Last Admin: 09/05/19 20:35 Dose: 10 units Insulin Human Lispro (Humalog) 0 unit SUBCUT QIDACANDBED [facility]; Protocol Last Admin: 09/06/19 11:34 Dose: 6 units Admin: 09/06/19 07:33 Dose: Not Given Admin: 09/05/19 21:13 Dose: Admin: 09/05/19 20:39 Dose: 6 units Admin: 09/05/19 17:48 Dose: 4 units Melatonin (Melatonin) 9 mg PO BEDTIME [facility] Last Admin: 09/05/19 20:36 Dose: 9 mg Admin: 09/04/19 23:01 Dose: 9 mg Nystatin (Nystop) 0 gm TOP BID [facility] Last Admin: 09/06/19 08:23 Dose: 1 applic Admin: 09/05/19 20:37 Dose: 1 applic Admin: 09/05/19 10:06 Dose: 1 applic Admin: 09/04/19 21:54 Dose: 1 applic Sertraline HCl (Zoloft) 100 mg PO BEDTIME [facility] Last Admin: 09/05/19 20:38 Dose: 100 mg Admin: 09/04/19 21:54 Dose: 100 mg Sodium Chloride (Saline Flush) 10 ml FLUSH ASDIRECTED PRN PRN Reason: Keep Vein Open Last Admin: 09/04/19 14:18 Dose: 10 ml Trazodone HCl (Trazodone) 150 mg PO BEDTIME [facility] Last Admin: 09/05/19 20:37 Dose: 150 mg Admin: 09/04/19 21:54 Dose: 150 mg Vitamin B Complex/Vitamin C (Super B With Vitamin C) 1 cap PO DAILY [facility] Last Admin: 09/06/19 08:19 Dose: 1 cap Admin: 09/05/19 08:55 Dose: 1 cap - Plan Plan (Free Text/Narrative):: have discussed care with Hospitalist she has a hb 7.1 and needs transfusion but as per hospitalist will aslo0 need dialysis and hence a transfer will dictate discharge
--- NOTE | 2019-09-06 13:46 | HP ---
DATE OF ADMISSION: 09/04/2019 HISTORY OF PRESENT ILLNESS: This is a 69-year-old female who comes from the residential with a large hematoma over the right medial aspect of her lower anterior tibial area. This started after she developed blow in this area. She hit a lift with initial contusion. Subsequently on her caregiver's knee. There is noted a swelling hematoma. The exact timeframe when these events happened is not clear, but it seems like it was some time today, and because of the expanding hematoma and pain, they came into the emergency room. The patient is on Eliquis for atrial fibrillation. REVIEW OF SYSTEMS: No chest pain, shortness of breath, cough, hoarseness, wheezing, fainting, weakness, numbness, or convulsions. SOCIAL HISTORY: No smoking, no drinking. ALLERGIES: Allergies to none known. CURRENT MEDICAL PROBLEMS: Consist of atrial fibrillation, difficulty hearing. MEDICATIONS: Per medication reconciliation form. PHYSICAL EXAMINATION: GENERAL: Reveals an alert, cooperative female. HEENT: Eyes: Sclerae white. Extraocular muscle motion normal. Oral Cavity: Healthy mucous membranes with mouth and tongue. NECK: Supple. No nodes. No thyromegaly. LUNGS: Clear. ABDOMEN: Soft. EXTREMITIES: Shows a swelling about 16 cm over the right anterior tibial area with dusky blue-colored skin. NEUROLOGIC: 3 through 12 intact. PSYCHIATRIC: Normal. SKIN: Warm and dry. VITAL SIGNS: Blood pressure is pending. ASSESSMENT: Hematoma secondary to trauma and the patient being on Eliquis. PLAN: It was expanding nature. We will explore and drain, and control bleeding as needed. Discussed this with the patient, risks, complications; she understands and consents. MMODAL /[id number]
--- NOTE | 2019-09-06 13:50 | HP ---
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 This was done 7 years ago. The experience has left her with a colostomy. The rectum is still intact, but it has not been taken down, and that she had chronic renal failure, is currently on dialysis. At the present, the patient had eaten a full meal at noontime and the Anesthesia wishes to wait for 6 hours and we will proceed with the I and D at 6. I discussed this with the patient and she understands. MEDICATION LIST: Pending at this time. ALLERGIES: To benzoin, fentanyl, and morphine, more like drug reactions than allergies. VAUGHN /[id number]
--- NOTE | 2019-09-06 13:55 | OR ---
DATE OF OPERATION: 09/04/2019 SURGEON: Ronnie Cueva MD PREOPERATIVE DIAGNOSIS: Expanding hematoma of the right medial part of the calf. POSTOPERATIVE DIAGNOSIS: Expanding hematoma of the right medial part of the calf. OPERATION PERFORMED: Exploration of hematoma and application of FloSeal and compressive dressing done under IV sedation. ANESTHESIA: IV sedation. FINDINGS: ooze around the fat, no specific vessel was identified. The amount of blood evacuated from hematoma was 260 mL. DESCRIPTION OF PROCEDURE: The patient was taken to the operating room and placed in a supine position, connected to monitoring equipment, given IV sedation. The right leg and the large expanding hematoma were prepped with Betadine, draped off in a sterile fashion. An incision was made and bright red blood was evacuated. The area with hematoma was removed where appropriate and the area was checked and no specific pumping vessel was identified. FloSeal was then applied to the area along with Xeroform gauze, gauze dressing, fluffs, and followed by Kerlix and a Coban wrap of the leg. It was then elevated and the patient remained stable and sent to recovery room in a stable condition. ESTIMATED BLOOD LOSS: MMODAL /[id number]
--- NOTE | 2019-09-07 07:14 | DISCH ---
ADMISSION DATE: 09/04/2019 DISCHARGE DATE: 09/06/2019 This is a 69-year-old female who presented to the emergency room after some trauma with swelling to the dorsum of her right leg, near the calf. A large hematoma developed over about 3 hours, measuring about 14 cm, which was quite painful. The patient was on Eliquis for atrial fibrillation. She had other medical problems of inability to walk, having had some years ago a necrotizing fasciitis in the perineum requiring a permanent colostomy, which has not been taken down, associated with chronic renal failure and is on dialysis. During the period of observation in the emergency room, the hematoma expanded and surgical consultation was obtained. Other medical problems consist of heart failure, elevated cholesterol, hypertension, pacemaker, COPD. MEDICATIONS: Her medications are as per medication reconciliation form. PHYSICAL EXAMINATION: GENERAL: At the time of admission revealed an alert and cooperative female. HEENT: Eyes: Sclerae are white extraocular muscle motion normal. Oral cavity: Healthy mucous membrane with mouth and tongue. NECK: Supple. LUNGS: Clear. HEART: Tones regular rate. ABDOMEN: Soft. No tenderness, guarding, or rebound. Colostomy noted in the right lower quadrant. NEUROLOGIC: Grossly normal as was the mental status exam. SKIN: Shows over the leg a large hematoma, quite tender, which seems to be lifting up the dermis more than anything. It is dark purple with blisters forming over the area. There is later some decubitus ulcers noted over the sacrum in the anal cleft area. She has very thin fragile skin in general. The skin is warm. VITAL SIGNS: Temperature 36.7, pulse 82, respirations 16, and blood pressure 95/66. HOSPITAL COURSE: The patient was evaluated in the emergency room and Anesthesia had seen her and elected to wait about 6 hours prior to taking her to Surgery to drain the expanding hematoma. This was done because she had eaten a full meal. The patient was then taken to the operating room, where the hematoma was opened. Some oozing from the fat was noted. The dermis was a layer that had been from the fat. No specific bleeding point was noted. FloSeal was then placed. It was packed first with Xeroform gauze and then 4x4s, and a compressive dressing placed. This was evaluated and show of blood was noted. The dressing was checked and re-dressed showing adequate hemostasis. The patient was placed in the hospital for observation. Leg was elevated and IV fluids given consisting of normal saline. Her vital signs came up to from 95 to about 105/86. Her laboratory data was watched. The next day, hemoglobin was 7.9. Her potassium was 4.3, and creatinine 5.3, slightly noted to go up to 7.6. Blood sugars were 240 to 275, and the Hospitalist consult was then obtained. She was followed for the 24 hours and her hemoglobin dropped further to 7.1 from 7.9. Examination of the dressing showed it to be intact and clean. It was elected at this time because of her multiple medical problems the need for dialysis, need for transfusion, anemia, and heart failure, the anemia due to iron and deficiency of blood loss, chronic anticoagulation, her factor XA inhibitor was stopped; and insulin dependent, that she would be best treated transferred to [place]. Discussed with the patient. She understands and has consented Ronnie, and the transfer will be affected by the hospitalist. Her condition on transfer is stable with improvement. Diet, a renal dialysis diet. Activities, bed rest with up in the chair. FINAL DIAGNOSIS: DISCHARGE MEDICATIONS: DIET: Renal dialysis diet. ACTIVITY: Bed rest with up in the chair. FOLLOW-UP: CONDITION ON TRANSFER: Stab;e with improvement. VAUGHN /[id number]
== END 2019-09-06 13:14 ==
LOC: JD.ED 13:34 → JD.SDS 15:32 → JD.MS 16:02
PROVIDERS: ADMIT Surgery; ATTEND Surgery
DX: S80.11XA Contusion of right lower leg, initial encounter (principal); I13.2 Hypertensive heart and chronic kidney disease with heart failure and with stage 5 chronic kidney disease, or end stage renal disease; E11.22 Type 2 diabetes mellitus with diabetic chronic kidney disease; I50.9 Heart failure, unspecified; N18.6 End stage renal disease; D50.0 Iron deficiency anemia secondary to blood loss (chronic); E78.00 Pure hypercholesterolemia, unspecified; J44.9 Chronic obstructive pulmonary disease, unspecified; I48.91 Unspecified atrial fibrillation; F32.9 Major depressive disorder, single episode, unspecified; F41.9 Anxiety disorder, unspecified; M19.90 Unspecified osteoarthritis, unspecified site; M81.0 Age-related osteoporosis without current pathological fracture; R32 Unspecified urinary incontinence; I95.9 Hypotension, unspecified; E66.01 Morbid (severe) obesity due to excess calories; W24.0XXA Contact with lifting devices, not elsewhere classified, initial encounter; Z68.41 Body mass index [BMI] 40.0-44.9, adult; Z87.891 Personal history of nicotine dependence; Z88.8 Allergy status to other drugs, medicaments and biological substances; Z88.5 Allergy status to narcotic agent; Z88.6 Allergy status to analgesic agent; Z79.01 Long term (current) use of anticoagulants; Z79.4 Long term (current) use of insulin; Z79.899 Other long term (current) drug therapy; Z99.2 Dependence on renal dialysis; Z74.01 Bed confinement status
CPT/HCPCS: 10140; 36415; 80053; 80061; 82962; 83036; 83735; 83880; 84100; 85025; 85610; 85730; 87641; 96361; 96374; 96375; 96376; 97110; 97161; 99284; A9270; G0378; J1170; J1815; J2001; J2704; J2765; J3480; 00400; 99285